=== PATIENT | female | born 1975 | race Caucasian/White ===

== ENCOUNTER 2016-11-27 13:34 | Emergency (ER) | payer BC, MEDICAID ==
[~2016-11-27] VITALS: Ht 167.6 cm; Wt 55.2 kg
[2016-11-27 13:48] VITALS: Ht 167.6 cm; Wt 55.2 kg
[2016-11-27 17:11] LABS: URINE BLOOD (Dip) POC 2+ (NEGATIVE)
--- NOTE | 2016-11-27 17:51 | RADRPT ---
PROCEDURE: Pelvic ultrasound. CLINICAL INDICATION: Pelvic pain TECHNIQUE: Palma scale, color doppler, spectral doppler ultrasound of the pelvis was performed with transabdominal and transvaginal transducers. COMPARISON: No prior studies are available for comparison. FINDINGS: Uterus: Position: Anteverted. Normal myometrial echogenicity. Normal appearance of the endometrium. Ovaries: Normal sized ovaries with preserved blood flow. No adnexal masses. Free fluid: None. Measurements: Endometrium: 0.46 cm Uterus: 6.9 x 3.4 x 3.9 cm Right ovary: 2.5 x 1.4 x 1.9 cm Left ovary: 2.1 x 1.0 x 1.8 cm IMPRESSION: Normal examination. RPTAT: AADD .Nathanael Gonzalez MD, Date Time Electronically viewed and signed by .Nathanael Gonzalez MD, on 11/27/2016 17:51 .B/
[2016-11-27] MEDS ORDERED: IBUP400T22 PO (17:56)
--- NOTE | 2016-11-27 17:58 | ERD ---
ER Documentation Chief Complaint Date/Time DATE: 11/27/16 TIME: 17:57 Chief Complaint VB and acute pelvic pain since last night. HPI This 41-year-old female complains of pelvic pain and vaginal bleeding starting last night. She is approximately 10 days early for menstrual period. She denies any known . She has some mucus but no vaginal discharge but denies any urinary complaints, fevers, vomiting, upper abdominal pain ROS All systems reviewed and are negative except as per history of present illness. Medications Home Meds Active Scripts Ibuprofen* (Motrin*) 400 Mg Tab, 400 MG PO Q6, #15 TAB Prov:EMILY PRTETY MD 11/27/16 Allergies Allergies: Coded Allergies: Penicillins (Verified Allergy, Unknown, 04/28/14) PMhx/Soc Medical and Surgical Hx: pt denies Medical Hx, pt denies Surgical Hx Hx Alcohol Use: Yes (SOCIAL) Hx Substance Use: No Hx Tobacco Use: No Smoking Status: Never smoker Physical Exam Vitals Vital Signs Date Time Temp Pulse Resp B/P Pulse Ox O2 Delivery O2 Flow Rate FiO2 11/27/16 13:48 97.8 65 20 113/68 100 Physical Exam Const: [] Alert, [id number] per Head: Atraumatic Eyes: Normal Conjunctiva. No pallor of the lids ENT: Normal External Ears, Nose and Mouth. Neck: Full range of motion..~ No meningismus. Resp: Clear to auscultation bilaterally Cardio: Regular rate and rhythm, no murmurs Abd: Soft, minimal suprapubic tenderness. No localized tenderness in the right lower quadrant left lower quadrant and no Yung sign and no rebound, non distended. Normal bowel sounds Skin: No petechiae or rashes Back: No midline or flank tenderness Ext: No cyanosis, or edema Neur: Awake and alert Psych: Normal Mood and Affect Results 24 hrs Laboratory Tests Test 11/27/16 17:14 Bedside Urine Blood 2+ Bedside Urine Glucose (UA) Negative Bedside Urine Ketones (LAB) Negative Bedside Urine Leukocyte Esterase (L Trace Bedside Urine Nitrite (LAB) Negative Bedside Urine Protein (LAB) Negative Bedside Urine pH (LAB) 7.0 Procedures/MDM Pelvic ultrasound read as normal. Urine is negative for leukocytes, nitrites, glucose. There is trace hemoglobin. HCG is negative. Patient presents with vaginal bleeding for 1 day of uncertain etiology. She may have dysfunctional uterine bleeding she does state that she is under a lot of stress. Urine was sent for gonorrhea and chlamydia. Patient is advised to follow-up with primary doctor primary care otherwise recommend further observation at home. She is to return for fevers, vomiting, new worsening symptoms with primary care doctor as directed. Departure Diagnosis: Primary Impression: Vaginal bleeding Condition: Stable Patient Instructions: Dysfunctional Uterine Bleeding Additional Instructions: Ultrasound and urine normal today. Recommend observation at home and recheck with primary doctor for primary care. Recheck otherwise for fevers, vomiting, new worsening symptoms. EMILY PRETTY MD Nov 27, 2016 17:58
[2016-11-27 18:19] VITALS: BP 115/75; PULSE 65; RESP 20
== END 2016-11-27 18:20 | disposition home or self-care (01) ==
LOC: FTE 13:34
DX: N93.9 Abnormal uterine and vaginal bleeding, unspecified (principal)
CPT/HCPCS: 76830; 76856; 81003; 87591; Z7502